=== PATIENT | male | born 1955 | race Caucasian/White ===

== ENCOUNTER 2023-01-26 20:13 | Inpatient (IN) | payer OTHER ==
[~2023-01-26] VITALS: Ht 180.3 cm; Wt 105.9 kg
[2023-01-26] MEDS ORDERED: INSULIN GL100 UNIT/3 SC (20:46)
[2023-01-26] MEDS ORDERED: GABA100 PO (20:47)
[2023-01-26] MEDS ORDERED: OMEP20ER PO (20:48)
[2023-01-26] MEDS ORDERED: Aspir 8181 MG PO (20:48)
[2023-01-26] MEDS ORDERED: Prinivil10 MG PO (20:48)
[2023-01-26] MEDS ORDERED: FURO20 PO (20:48)
[2023-01-26] MEDS ORDERED: POTCHL20ER PO (20:48)
[2023-01-26 21:32] LABS: BASOPHILS ABSOLUTE AUTO 0.02 K/mm3 (0.00-0.23); BASOPHILS PERCENT AUTO 0 % (0-2); EOSINOPHILS ABSOLUTE AUTO 0.19 K/mm3 (0.00-0.68); EOSINOPHILS PERCENT AUTO 2 % (0-6); Hemoglobin 11.9 g/dL (13.5-17.5); IMMATURE GRAN ABSOLUTE AUTO 0.03 K/mm3 (0.00-0.10); IMMATURE GRAN PERCENT AUTO 0 % (0-1); LYMPHOCYTES PERCENT AUTO 22 % (21-46); MONOCYTES ABSOLUTE AUTO 0.77 K/mm3 (0.16-1.47); MONOCYTES PERCENT AUTO 9 % (4-13); Mean Corpuscular HGB 29.2 pg (26.0-34.0); Mean Corpuscular HGB Conc 33.1 g/dL (31.5-36.5); Mean Corpuscular Volume 88 fL (80-100); Mean Platelet Volume 11.8 fL (9.1-12.4); NEUTROPHILS ABSOLUTE AUTO 5.91 K/mm3 (1.96-9.15); NEUTROPHILS PERCENT AUTO 66 % (41-73); Platelet Count 217 K/mm3 (150-400); RDW Coefficient Variation 14.6 % (11.7-14.2); RDW Standard Deviation 47.1 fL (35.1-46.3); Red Blood Cell Count 4.08 M/mm3 (4.30-5.90); White Blood Cell Count 8.92 K/mm3 (4.00-11.30)
[2023-01-26 21:51] LABS: Albumin, Blood 3.2 g/dL (3.4-5.0); Albumin/Globulin Ratio 0.8 (0.8-1.8); Bilirubin, Total 0.7 mg/dL (0.1-1.0); Bun/Creatinine Ratio 10.8 (12.0-20.0); Calcium, Blood 8.4 mg/dL (8.5-10.1); Creatinine, Blood 2.32 mg/dL (0.60-1.20); Globulin, Blood 3.8 g/dL (2.2-4.0); Potassium, Blood 4.6 mmol/L (3.5-5.5)
[2023-01-26 22:30] LABS: Source, Urine Clean Catch
[2023-01-26 22:33] LABS: Bilirubin, Urine Neg (Neg); Blood, Urine 1+ (Neg); Glucose Qualitative, Urine 1+ (Neg); Ketones, Urine Neg (Neg); Leukocyte Esterase, Urine Neg (Neg); Nitrite, Urine Neg (Neg); Protein, Urine 3+ (Neg); Specific Gravity, Urine 1.015 (1.003-1.022); Urobilinogen, Urine NORM (Normal)
[2023-01-26 22:38] LABS: Appearance, Urine Clear (Clear); Color, Urine Yellow (P-Yellow)
[2023-01-26 22:39] LABS: Amorphous Light (0-Heavy); Bacteria Not Seen /hpf; Hyaline Casts 0-2 /lpf (0-2); Red Blood Cells, Urine 0-2 /hpf (0-2); Squamous Epithelial Cells Rare /hpf (Few); White Blood Cells, Urine 0-2 /hpf (0-5)
[2023-01-27 01:01] VITALS: BP 186/76
[2023-01-27 01:10] LABS: Influenza A, PCR NEGATIVE (NEGATIVE); Influenza B, PCR NEGATIVE (NEGATIVE); Resp Syncytial Virus, PCR NEGATIVE (NEGATIVE); SARS-Cov-2 (COVID-19) PCR, MMC NEGATIVE (NEGATIVE)
[2023-01-27 04:23] VITALS: BP 180/67
[2023-01-27 04:42] LABS: BASOPHILS ABSOLUTE AUTO 0.03 K/mm3 (0.00-0.23); BASOPHILS PERCENT AUTO 0 % (0-2); EOSINOPHILS PERCENT AUTO 2 % (0-6); Hemoglobin 11.5 g/dL (13.5-17.5); IMMATURE GRAN ABSOLUTE AUTO 0.02 K/mm3 (0.00-0.10); IMMATURE GRAN PERCENT AUTO 0 % (0-1); LYMPHOCYTES ABSOLUTE AUTO 2.26 K/mm3 (0.84-5.20); LYMPHOCYTES PERCENT AUTO 27 % (21-46); MONOCYTES ABSOLUTE AUTO 0.77 K/mm3 (0.16-1.47); MONOCYTES PERCENT AUTO 9 % (4-13); Mean Corpuscular HGB Conc 32.9 g/dL (31.5-36.5); Mean Corpuscular Volume 88 fL (80-100); Mean Platelet Volume 12.5 fL (9.1-12.4); NEUTROPHILS ABSOLUTE AUTO 5.03 K/mm3 (1.96-9.15); NEUTROPHILS PERCENT AUTO 61 % (41-73); Platelet Count 200 K/mm3 (150-400); RDW Coefficient Variation 14.6 % (11.7-14.2); RDW Standard Deviation 46.8 fL (35.1-46.3); Red Blood Cell Count 3.97 M/mm3 (4.30-5.90); White Blood Cell Count 8.31 K/mm3 (4.00-11.30)
[2023-01-27 05:22] LABS: Bun/Creatinine Ratio 11.5 (12.0-20.0); Calcium, Blood 8.4 mg/dL (8.5-10.1); Creatinine, Blood 2.26 mg/dL (0.60-1.20); Magnesium, Blood 1.5 mg/dL (1.6-2.4); Potassium, Blood 4.3 mmol/L (3.5-5.5); Thyroid Stimulating Hormone 2.42 uIU/mL (0.360-4.800)
--- NOTE | 2023-01-27 06:09 | NUR ---
SHIFT SUMMARY NOC ADMIT FROM ED WITH C/O OF NEW ONSET NAUSEA AND BRADYCARDIA AND PAYAL. PT IS A/O X 4. INDEPEDENT IN ROOM AND CONTINENT. PT ON TELE RUNNING SINUS THUAN @ 42 BPM. PT HAD C/O OF NAUSEA UPON ADMIT TO UNIT AND MEDICATED PER EMAR. PT HAS RENAL/BLADDER ULTRASOUND SCHEDULED FOR 01/27/23. PT IS CURRENTLY RESTING WITH BED IN LOWEST POSITION, AND CALL LIGHT WITHIN REACH.
[2023-01-27 07:16] VITALS: BP 201/78
--- NOTE | 2023-01-27 07:22 | NUR ---
ASSUMED CARE: PT RESTING IN BED, FLIGHT COORDINATOR AT BEDSIDE GETTING VITALS. HYPERTENSION NOTED. CALL TO DR JARRELL TO MAKE HER AWARE THAT CURRENT HR IN 50S AND PT HAS BEEN TRENDING HYPERTENSIVE ON TELE. DR STATES SHE WILL REVIEW FURTHER
[2023-01-27 08:22] VITALS: BP 187/82
[2023-01-27] MEDS ORDERED: ALBU90OI INH (11:23)
[2023-01-27] MEDS ORDERED: Ventolin5 MG/1 ML INH (11:24)
[2023-01-27] MEDS ORDERED: AMLO5 PO (11:24)
[2023-01-27] MEDS ORDERED: FLUTICASONE-SA1 EAC1 INH (11:25)
[2023-01-27] MEDS ORDERED: ESCI20 PO (11:25)
[2023-01-27] MEDS ORDERED: Flonase 0.05% N16 GM (11:26)
[2023-01-27] MEDS ORDERED: NOVOLOG FL100 UNIT/3 SC (11:27)
[2023-01-27] MEDS ORDERED: LIDO700A20 TOP (11:28)
[2023-01-27] MEDS ORDERED: PREG150 PO (11:29)
[2023-01-27] MEDS ORDERED: Pantoprazole So40 MG PO (11:29)
--- NOTE | 2023-01-27 11:30 | NUR ---
MEDICATION LIST RECIEVED FROM NE. MED REC UPDATED AND DR JARRELL HAS BEEN CALLED TO MAKE HER AWARE OF CHANGES
[2023-01-27 12:31] VITALS: BP 173/68
[2023-01-27 14:19] VITALS: BP 153/63
[2023-01-27] MEDS ORDERED: HYDRA25 PO (15:28)
[2023-01-27] MEDS ORDERED: ONDA4ODT MM (15:29)
[2023-01-27] MEDS ORDERED: METO5A PO (15:29)
[2023-01-27] MEDS ORDERED: NOVOLOG FL100 UNIT/3 (16:07)
--- NOTE | 2023-01-27 16:29 | NUR ---
DISCHARGE SUMMARY: PT PROVIDED WITH DISCHARGE EDUCATION TO INCLUDE MEDICATION REGIMEN, INSULIN LOW SLIDING SCALE, FOLLOW UP APPOINTMENTS, AND CONTACT INFORMATION FOR [facility] AND [facility]. IV REMOVED AND SITE DRESSED WITH GAUZE AND KERLEX. SPOUSE PRESENT FOR ALL DISCHARGE TEACHING. PT AND SPOUSE ALLOWED TIME FOR QUESTIONS AND CONCERNS, NONE VOICED. PT ELECTS TO DISCHARGE WITHOUT WHEELCHAIR OR STAFF ESCORT. PT DISCHARGED TO AWAITING PRIVATE VEHICLE WITH HIS SPOUSE THE STATED ASSOCIATE PROFESSOR OF EDUCATION.
== END 2023-01-27 16:26 | disposition home or self-care (01) | DRG 309 ==
LOC: ER 20:13 → MEDS 20:14
PROVIDERS: Emergency Medicine; ADMIT Student in an Organized Health Care Education/Training Program
DX: R00.1 Bradycardia, unspecified (principal); N17.9 Acute kidney failure, unspecified; I12.9 Hypertensive chronic kidney disease with stage 1 through stage 4 chronic kidney disease, or unspecified chronic kidney disease; N18.30 Chronic kidney disease, stage 3 unspecified; E11.22 Type 2 diabetes mellitus with diabetic chronic kidney disease; F17.210 Nicotine dependence, cigarettes, uncomplicated; E11.43 Type 2 diabetes mellitus with diabetic autonomic (poly)neuropathy; K31.84 Gastroparesis; I25.10 Atherosclerotic heart disease of native coronary artery without angina pectoris; R33.9 Retention of urine, unspecified; I44.7 Left bundle-branch block, unspecified; Z20.822 Contact with and (suspected) exposure to COVID-19; E11.65 Type 2 diabetes mellitus with hyperglycemia; E11.42 Type 2 diabetes mellitus with diabetic polyneuropathy; Z88.0 Allergy status to penicillin; Z95.1 Presence of aortocoronary bypass graft; Z88.8 Allergy status to other drugs, medicaments and biological substances; Z79.4 Long term (current) use of insulin; Z79.82 Long term (current) use of aspirin; Z79.811 Long term (current) use of aromatase inhibitors; Z79.899 Other long term (current) drug therapy; Z88.5 Allergy status to narcotic agent
CPT/HCPCS: 0241U; 36415; 71045; 76770; 80048; 80053; 81001; 82947; 83036; 83690; 83735; 83880; 84443; 84484; 85025; 93005; 93010; 96361; 96365; 96366; 96374; 96375; 99284-25; A9270; G0378; J0360; J1644; J1815; J2405; J3475; J7030